=== PATIENT | male | born 1990 | race Caucasian/White ===

== ENCOUNTER 2017-08-30 12:31 | Emergency (ER) | payer SELFPAY ==
[~2017-08-30] VITALS: Ht 182.9 cm; Wt 68.0 kg
== END 2017-08-30 14:30 | disposition home or self-care (01) ==
LOC: ED 12:31
DX: F41.9 Anxiety disorder, unspecified (principal); F11.988 Opioid use, unspecified with other opioid-induced disorder
CPT/HCPCS: 80053; 81001; 85025; 96361; 96374; 99283; J2060; J7030

== ENCOUNTER 2020-07-05 21:06 | Emergency (ER) | payer SELFPAY ==
[~2020-07-05] VITALS: Ht 182.9 cm; Wt 68.0 kg
== END 2020-07-06 | disposition home or self-care (01) ==
LOC: ED 21:06
DX: F41.9 Anxiety disorder, unspecified (principal); F15.10 Other stimulant abuse, uncomplicated; F17.200 Nicotine dependence, unspecified, uncomplicated
CPT/HCPCS: 81001; 99283

== ENCOUNTER 2020-10-21 20:10 | Emergency (ER) | payer OTHER ==
[~2020-10-21] VITALS: Ht 182.9 cm; Wt 94.0 kg
--- OUTSIDE RECORDS SUMMARY | 2020-10-21 20:12 | XMS ---
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 Pardeep has no Care Guidelines for this patient. Dina VISIT COUNT (12 MO.) 2 GALINDO Abarca TOTAL 2 NOTE: Visits indicate total known visits. ED/C VISIT TRACKING (12 MO.) 10/21/2020 20:10 GALINDO Ramirez [place] TYPE: Emergency COMPLAINT: - EYE PAIN 07/05/2020 21:30 GALINDO Ramirez [place] TYPE: Emergency COMPLAINT: - ABDOMINAL PAIN DIAGNOSES: - Anxiety disorder, unspecified - Other stimulant abuse, uncomplicated - Nicotine dependence, unspecified, uncomplicated INPATIENT VISIT TRACKING (12 MO.) No inpatient visits to display in this time frame [email or web address]
== END 2020-10-21 21:00 | disposition home or self-care (01) ==
LOC: ED 20:10
DX: H16.133 Photokeratitis, bilateral (principal); F17.200 Nicotine dependence, unspecified, uncomplicated
CPT/HCPCS: 99283